=== PATIENT | male | born 1990 | race Asian ===

== ENCOUNTER → 2017-12-19 | Outpatient (CLI) | payer OTHER ==
--- NOTE | 2017-12-19 08:38 | DIAGNOSTIC IMAGING REPORT ---
(BARIUM SWALLOW) ESOPHAGUS CLINICAL HISTORY: Sensation of a right neck swelling. COMPARISON STUDY: None. FLUOROSCOPY TIME: 1.1 minute. 23 fluoroscopic spot images submitted. FINDINGS: The patient swallowed barium without difficulty. The contours of the hypopharynx are within normal limits. The esophagus is normal in course, caliber, and motility. No hiatus hernia. No gastroesophageal reflux. IMPRESSION: Normal barium swallow. Electronically signed by: Johnnie Vo M.D. 12/19/2017 8:37 AM Dictated Date/Time: 12/19/2017 8:36 AM
== END | disposition home or self-care (01) ==
LOC: C.RAD 08:10
DX: K21.9 Gastro-esophageal reflux disease without esophagitis (principal)